=== PATIENT | female | born 1985 | race Caucasian/White ===

== ENCOUNTER 2016-12-13 06:36 | Day surgery (SDC) | payer OTHER ==
[~2016-12-13] VITALS: Ht 162.6 cm; Wt 96.6 kg
[2016-12-13 07:29] LABS: HEMOGLOBIN 12.3 gm/dl (12.3-15.3); RED BLOOD COUNT 4.41 M/UL (4.00-5.10)
[2016-12-13] MEDS ORDERED: SUBUTEX 8 MG TAB8 MG PO (07:48)
[2016-12-13] MEDS ORDERED: ZANTAC150 MG PO (07:48)
[2016-12-13] MEDS ORDERED: SYNTHROID100 MCG PO (07:48)
[2016-12-13] MEDS ORDERED: PRENATAL TABLE1 EAC1 PO (07:49)
== END 2016-12-14 03:35 | disposition home or self-care (01) ==
LOC: OR 06:36 → OB 09:28 → OR 13:45
PROVIDERS: Obstetrics & Gynecology
PROC: 0UVC7ZZ Restriction of Cervix, Via Natural or Artificial Opening (ICD-10-PCS; principal; 2016-12-13 08:00)
DX: O34.32 Maternal care for cervical incompetence, second trimester (principal); O99.322 Drug use complicating pregnancy, second trimester; F11.10 Opioid abuse, uncomplicated; O99.612 Diseases of the digestive system complicating pregnancy, second trimester; K21.9 Gastro-esophageal reflux disease without esophagitis; Z3A.14 14 weeks gestation of pregnancy; Z86.19 Personal history of other infectious and parasitic diseases; Z87.440 Personal history of urinary (tract) infections; Z82.49 Family history of ischemic heart disease and other diseases of the circulatory system; Z83.3 Family history of diabetes mellitus; Z79.899 Other long term (current) drug therapy; Z98.890 Other specified postprocedural states
CPT/HCPCS: 36415; 81001; 85025; J2405; J2550; J7120; Q0162